=== PATIENT | female | born 1975 | race Two or more races ===

== ENCOUNTER 2017-06-27 13:01 | Emergency (ER) | payer MEDICAID ==
[~2017-06-27] VITALS: Ht 149.9 cm; Wt 70.0 kg
[~2017-06-27 13:01] MED LIST: ASCO100T2
[2017-06-27] MEDS ORDERED: LIDOCAINE HCL 1% 20ML VIAL (Pyxis) INJ INFIL ONE (16:00)
[2017-06-27 17:42] VITALS: BP 112/79
== END 2017-06-27 17:44 | disposition home or self-care (01) ==
LOC: ER 14:28
DX: L02.91 Cutaneous abscess, unspecified (principal); Z88.0 Allergy status to penicillin; Z98.890 Other specified postprocedural states
CPT/HCPCS: 10060; 81025; 99283; J3490; Z7610

== ENCOUNTER 2017-06-29 12:01 | Emergency (ER) | payer MEDICAID ==
[~2017-06-29] VITALS: Ht 149.9 cm; Wt 70.0 kg
[2017-06-29 12:31] VITALS: BP 121/83
== END 2017-06-29 13:19 | disposition home or self-care (01) ==
LOC: ER 12:48
DX: Z48.817 Encounter for surgical aftercare following surgery on the skin and subcutaneous tissue (principal); Z88.0 Allergy status to penicillin
CPT/HCPCS: 99281